=== PATIENT | female | born 1955 | race Caucasian/White ===

== ENCOUNTER → 2018-01-16 | Outpatient (CLI) | payer OTHER ==
[~2018-01-16] MED LIST: CRESTOR10 MG PO; KEFLEX500 M1 PO; NABUMETONE 750750 M1 PO; NAPROSYN500 MG PO; ONDANSETRON HCL4 M2 PO; PRILOSEC 20 MG20 MG PO; ROBAXIN 750 MG750 M1 PO; ZANAFLEX4 MG PO
== END ==
LOC: M.ULTRA 15:19
DX: M79.662 Pain in left lower leg (principal)

== ENCOUNTER 2018-05-11 17:06 | Emergency (ER) | payer OTHER ==
[~2018-05-11] VITALS: Ht 170.2 cm; Wt 81.7 kg
[~2018-05-11 17:06] MED LIST changes: -CRESTOR10 MG PO; -KEFLEX500 M1 PO; -NABUMETONE 750750 M1 PO; -ONDANSETRON HCL4 M2 PO; -PRILOSEC 20 MG20 MG PO; -ROBAXIN 750 MG750 M1 PO
[2018-05-11] MEDS ORDERED: CRESTOR10 MG PO (17:22)
[2018-05-11 17:41] LABS: URINE BILIRUBIN NEGATIVE (Negative); URINE BLOOD NEGATIVE (Negative); URINE CLARITY CLEAR; URINE COLOR YELLOW; URINE GLUCOSE-RANDOM NEGATIVE (Negative); URINE KETONES NEGATIVE (Negative); URINE LEUKOCYTES 1+ (Negative); URINE NITRITE NEGATIVE (Negative); URINE PROTEIN NEGATIVE (Negative); URINE SPECIFIC GRAVITY 1.015 (1.005-1.030); URINE UROBILINOGEN 0.2 E.U./dl (0.2-1.0)
[2018-05-11 17:52] LABS: ABSOLUTE BASOPHILS 0.1 thou/uL (0.0-0.2); ABSOLUTE EOSINOPHILS 0.1 thou/uL (0.0-0.7); ABSOLUTE LYMPHOCYTES 1.5 thou/uL (0.8-5.3); ABSOLUTE NEUTROPHILS 11.7 thou/uL (1.6-8.1); BASOPHILS 0.6 %; EOSINOPHILS 0.5 %; HEMATOCRIT 38.6 % (37.0-47.0); LYMPHOCYTES 10.6 %; MCH 30.5 pg (26.0-34.0); MCHC 33.6 g/dL (28.0-37.0); MCV 90.7 fL (80.0-100.0); MONOCYTES 6.8 %; MPV 8.4 fl. (7.2-11.1); NUCLEATED RBCS 0 /100WBC; PLATELET COUNT* 256 thou/uL (150-400); POLYS 81.5 %; RBC 4.25 mil/uL (4.20-5.00); RDW-CV 13.7 % (10.5-14.5); WBC 14.3 thou/uL (4.0-11.0)
[2018-05-11 17:53] LABS: BACTERIA 1-9 Few /HPF (None Seen); CASTS None Seen /LPF (None Seen); CRYSTALS None Seen /LPF (None Seen); SQUAMOUS 0-3 Few /LPF (0-3); URINE RBC 3-10 Few /HPF (0-2)
[2018-05-11 17:55] LABS: ANION GAP 4 mmol/L (7-16); BUN 15 mg/dL (7-18); CALCIUM 8.7 mg/dL (8.5-10.1); CHLORIDE 102 mmol/L (98-107); CO2 30 mmol/L (21-32); CREATININE 0.9 mg/dL (0.6-1.3); GLUCOSE 130 mg/dL (70-99); POTASSIUM 3.7 mmol/L (3.5-5.1); SODIUM 136 mmol/L (136-145)
[2018-05-11 18:03] LABS: ALBUMIN 3.5 g/dL (3.4-5.0); ALKALINE PHOSPHATASE 86 U/L (46-116); LIPASE 158 U/L (73-393); SGOT 24 U/L (15-37); SGPT 36 U/L (30-65); TOTAL BILIRUBIN 0.2 mg/dL (<0.1-1.0); TOTAL PROTEIN 7.4 g/dL (6.4-8.2); TROPONIN-I LEVEL <0.06 ng/mL (<0.06)
[2018-05-11] MEDS ORDERED: KEFLEX500 M1 PO (18:34)
[2018-05-11] MEDS ORDERED: ROBAXIN 750 MG750 M1 PO (18:34)
[2018-05-11] MEDS ORDERED: ONDANSETRON HCL4 M2 PO (18:34)
[2018-05-11] MEDS ORDERED: NABUMETONE 750750 M1 PO (18:34)
[2018-05-11] MEDS ORDERED: PRILOSEC 20 MG20 MG PO (18:34)
[2018-05-11 19:16] VITALS: BP 101/60
--- NOTE | 2018-05-12 15:04 | EKG ---
[place] [address] ELECTROCARDIOGRAM REPORT Name: TONIA CAPELLAN [id number] Admission: 05/11/18 Attend Phys: Discharge: 05/11/18 Date of : 53 Report #: [id number] THIS REPORT FOR: //name// [facility] ED Test Date: 2018-05-11 Test Time: 18:04:22 Pat Name: TONIA CAPELLAN Department: Room: Gender: F [employer]: [place] : 1955 Requested By: Rosa Dorsey Order Number: [id number] MD: Eric Sahni Measurements Intervals Epes Rate: 91 P: 23 AR: 166 QRS: 11 QRSD: 86 T: 30 QT: 366 QTc: 451 Interpretive Statements Sinus rhythm No previous ECG available for comparison Electronically Signed On 05-12-2018 15:04:20 CDT by Eric Sahni [email or web address] <ELECTRONICALLY SIGNED> By: Eric Sahni MD, [facility] 05/12/18 1504 1804 1804 Eric Sahni MD, FACC /EPI
== END 2018-05-11 19:18 | disposition home or self-care (01) ==
LOC: M.ERS 17:06
PROVIDERS: Nurse Practitioner Family
DX: K21.9 Gastro-esophageal reflux disease without esophagitis (principal); N39.0 Urinary tract infection, site not specified; G89.29 Other chronic pain; M54.5 Low back pain; Z88.0 Allergy status to penicillin; Z88.5 Allergy status to narcotic agent; Z88.8 Allergy status to other drugs, medicaments and biological substances; Z90.49 Acquired absence of other specified parts of digestive tract

== ENCOUNTER → 2018-06-04 | Outpatient (CLI) | payer OTHER ==
[~2018-06-04] MED LIST changes: +CRESTOR10 MG PO; +KEFLEX500 M1 PO; +NABUMETONE 750750 M1 PO; +ONDANSETRON HCL4 M2 PO; +PRILOSEC 20 MG20 MG PO; +ROBAXIN 750 MG750 M1 PO
== END ==
LOC: M.MRI 07:08
DX: M51.36 Other intervertebral disc degeneration, lumbar region (principal); M48.07 Spinal stenosis, lumbosacral region